=== PATIENT | male | born 1950 | race Two or more races ===

== ENCOUNTER 2019-01-13 09:59 | Outpatient (CLI) | payer OTHER ==
[~2019-01-13 09:59] MED LIST: ALTACE10 MG; ATORVASTATIN CA20 MG; FOLIC ACID1 MG; GLUCOPHAGE XR500 MG; GLYNASE6 MG; OSEL75CA PO; PULMICORT1 MG/2 ML IH; SYNTHROID125 MCG; TUSSIONEX PENNKI5 ML PO
== END 2019-01-13 10:04 | disposition home or self-care (01) ==
LOC: SONOGRAMA 09:59
DX: N40.0 Benign prostatic hyperplasia without lower urinary tract symptoms (principal); N28.1 Cyst of kidney, acquired

== ENCOUNTER 2020-03-11 09:48 | Outpatient (CLI) | payer OTHER | END 2020-03-11 09:59 | disposition home or self-care (01) | LOC: NUCLEAR 09:48 | PROVIDERS: ATTEND Internal Medicine Cardiovascular Disease | DX: I11.9 Hypertensive heart disease without heart failure (principal); I25.10 Atherosclerotic heart disease of native coronary artery without angina pectoris | CPT/HCPCS: 78452; 93017; A9500 ==